=== PATIENT | female | born 1985 | race Two or more races ===

== ENCOUNTER 2024-01-19 15:22 | Emergency (ER) | payer OTHER ==
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
--- NOTE | 2024-01-19 17:24 | US ---
EXAMINATION TYPE: US venous doppler duplex LE LT DATE OF EXAM: 01/19/2024 5:00 PM COMPARISON: NONE CLINICAL INDICATION: Female, 38 years old with history of calf cramping; Patient states walking down the stairs and felt a pop in calf. Since then, she has a calf cramp that hasn't gone away. Pain TECHNIQUE: The lower extremity deep venous system is examined utilizing real time linear array sonog celestino with graded compression, color doppler sonography, and spectral doppler. SIDE PERFORMED: Left FINDINGS: VESSELS IMAGED: Common Femoral Vein Deep Femoral Vein Greater Saphenous Vein * Femoral Vein Popliteal Vein Small Saphenous Vein * Proximal Calf Veins (* superficial vessels) Left Leg: Negative for DVT, Color Doppler imaging shows patency of the vessels. Spectral waveforms a re within normal limits. IMPRESSION: No ultrasound evidence for deep venous thrombosis. [facility], , 01/19/2024 5:22 PM
[2024-01-19 17:52] VITALS: BP 127/88; PULSE 82; RESP 18; TEMP 98.6
== END 2024-01-19 17:45 | disposition home or self-care (01) ==
LOC: EC 15:22
DX: S86.912A Strain of unspecified muscle(s) and tendon(s) at lower leg level, left leg, initial encounter (principal); F17.200 Nicotine dependence, unspecified, uncomplicated; Z91.018 Allergy to other foods; Z88.1 Allergy status to other antibiotic agents; X58.XXXA Exposure to other specified factors, initial encounter
CPT/HCPCS: 99284